=== PATIENT | male | born 1995 | race Caucasian/White ===

== ENCOUNTER 2017-11-28 14:58 | Emergency (ER) | payer OTHER, SELFPAY ==
--- NOTE | 2017-11-28 15:12 | DI.RAD.S_ITS ---
PROCEDURE: XR WRIST RT MIN 3V INDICATIONS: RIGHT wrist injury/deformity TECHNIQUE: 4 views of the wrist were acquired. COMPARISON: None. FINDINGS: Bones: Comminuted intra-articular fracture of the distal radius is noted. Mildly displaced ulnar styloid process fracture is noted. There is widening of the scapholunate interval. Scaphoid view: Scaphoid is intact. Soft tissues: No suspicious soft tissue calcifications. IMPRESSION: 1. Comminuted, intra-articular distal radius fracture. 2. Mildly displaced ulnar styloid process fracture. 3. Widening of the scapholunate interval. Scapholunate ligament injury cannot be excluded. Dictated by: Heidy Simeon MD, PhD on 11/28/2017 at 15:28 Approved by: Heidy Simeon MD, PhD on 11/28/2017 at 15:30
[2017-11-28 15:13] VITALS: BP 135/73; PULSE 64; RESP 14; TEMP 36.8; O2SAT 98; BMI 24.3
--- NOTE | 2017-11-28 16:05 | PC.NURSE ---
left hand scrubbed with hibiclens and water x 2. bacitracin and bulky dressing applied.
[2017-11-28 17:12] VITALS: BP 113/44; PULSE 75; RESP 16; O2SAT 100
--- NOTE | 2017-11-28 17:19 | ED_ITS ---
HPI - Extremity Injury (Upper) <MELANIA Keller - Last Filed: 11/28/17 20:03> General Chief Complaint: Extremity Injury, Upper Stated Complaint: BROKEN RT WRIST Time Seen by Provider: 11/28/17 15:21 Source: patient Mode of arrival: ambulatory Limitations: no limitations History of Present Illness HPI narrative: Patient presents with chief complaint of right wrist pain. He states he fell off of a approximately 10 ft tall roof at work earlier today and hurt his wrist. He denies hitting his head his neck or his back. He denies head neck or back pain. He does have some abrasions as upon. He denies any numbness or tingling of his right wrist or hand but is concerned that he broke his wrist. He denies any right elbow or shoulder pain. He states his tetanus is up-to-date within the past 2 years. He denies any dizziness, lightheadedness , headache, numbness, tingling difficulty walking, bowel incontinence, bladder incontinence, saddle anesthesia. He states he is here for an isolated wrist injury. Related Data Previous Rx's Medication Instructions Recorded oxycodone-acetaminophen [Percocet] 1 tab PO Q4-6H PRN #20 tab 11/28/17 Allergies Allergy/AdvReac Type Severity Reaction Status Date / Time No Known Drug Allergies Allergy Verified 11/28/17 15:13 Review of Systems <MELANIA Keller - Last Filed: 11/28/17 20:03> Review of Systems GENERAL: Denies chills, fatigue, malaise, fever, sweats. HEENT: Denies sinus pain, ear pain, sore throat, difficulty swallowing, dizziness. RESPIRATORY: Denies dyspnea, cough, wheezing, hemoptysis, sputum. CARDIOVASCULAR: Denies chest pain, palpitations, orthopnea, edema, GASTROINTESTINAL: Denies nausea, vomiting, abdominal pain, diarrhea, constipation, melena. : Denies dysuria, frequency, incontinence, hematuria, urinary retention. MUSCULOSKELETAL: See HPI SKIN: See HPI NEUROLOGIC: Denies weakness, headache, numbness, change in speech, confusion, seizures, incoordination. PSYCHIATRIC: No concerning psychosocial issues. 12 point review of systems is negative except for those stated above Exam <MELANIA Keller - Last Filed: 11/28/17 20:03> Narrative Exam Narrative: GENERAL: Young male pacing room. Family at bedside. HEAD: Atraumatic. Normocephalic. No temporal or scalp tenderness. EYES: Pupils equal round and reactive. Extraocular motions intact. No scleral icterus. No injection or drainage. ENT: Nose without bleeding, purulent drainage or septal hematoma. Throat without erythema, tonsillar hypertrophy or exudate. Uvula midline. Airway patent. NECK: Trachea midline. No JVD or lymphadenopathy. Supple, nontender, no meningeal signs. CARDIOVASCULAR: Regular rate and rhythm without murmurs, gallops, or rubs. RESPIRATORY: Clear to auscultation. Breath sounds equal bilaterally. No wheezes , rales, or rhonchi. GASTROINTESTINAL: Abdomen soft, non-tender, nondistended. No hepato-splenomegaly , or palpable masses. No guarding. EXTREMITIES: Right wrist pain to palpation that is generalized. Positive radial pulse noted right wrist. Capillary refill intact and less than 2 sec all fingers right hand. Moving all fingers of right hand. BACK: Nontender without deformity or crepitance. No flank tenderness. No pain to C-spine or spinal palpation. Ambulating well. NEURO: AOx3. Stable gait. Clear speech. SKIN: No ecchymosis, erythema rash or wound right wrist. Noted to have 3 cm abrasion left palm. Initial Vital Signs Initial Vital Signs: Vital Signs Temperature 98.3 F 11/28/17 15:13 Pulse Rate 64 11/28/17 15:13 Respiratory Rate 14 11/28/17 15:13 Blood Pressure 135/73 11/28/17 15:13 Pulse Oximetry 98 11/28/17 15:13 <Ko Mcgee DO - Last Filed: 11/28/17 21:31> Initial Vital Signs Initial Vital Signs: Vital Signs Temperature 98.3 F 11/28/17 15:13 Pulse Rate 64 11/28/17 15:13 Respiratory Rate 14 11/28/17 15:13 Blood Pressure 135/73 11/28/17 15:13 Pulse Oximetry 98 11/28/17 15:13 Procedures <JOHANNE Keller - Last Filed: 11/28/17 20:03> Orthopedic Splinting/Casting Injury #1: Side: right Upper Extremity Injury Location: wrist Upper Extremity Immobilizer: sling/shoulder immobilizer and sugar tong splint Additional Comments: Pulse motor sensory is intact before and after splint application. Splint applied by Shirley GILL Course <JOHANNE Keller - Last Filed: 11/28/17 20:03> Orders Ordered: ED Orders 11/28/17 15:12 XR wrist RT min 3V Stat I checked on the patient several times throughout his stay in the emergency department. Reevaluation(s) Reevaluation #1: Spoke with Dr. Perez who viewed the patient's x-rays, suggested a sugar-tong splint and a sling as well as follow up with Orthopedics. Given that the patient is from out of town, he will be following up with Orthopedics at home. Dr. Perez states this is appropriate. Time: 16:45 Vital Signs - 8 hr 11/28/17 15:13 11/28/17 17:12 11/28/17 17:36 Temperature 98.3 F Pulse Rate 64 75 62 Respiratory Rate 14 16 18 Blood Pressure 135/73 145/71 H Blood Pressure [Left Arm] 113/44 L Pulse Oximetry 98 100 99 <Ko Mcgee DO - Last Filed: 11/28/17 21:31> Orders Ordered: ED Orders 11/28/17 15:12 XR wrist RT min 3V Stat Vital Signs - 8 hr 11/28/17 15:13 11/28/17 17:12 11/28/17 17:36 Temperature 98.3 F Pulse Rate 64 75 62 Respiratory Rate 14 16 18 Blood Pressure 135/73 145/71 H Blood Pressure [Left Arm] 113/44 L Pulse Oximetry 98 100 99 MDM - Extremity Injury (Upper) <MELANIA Keller - Last Filed: 11/28/17 20:03> Differential Diagnosis Differential diagnosis: Likely sprain and strain of wrist, fracture of wrist, finger sprain, dislocation of finger, Colles' fracture and fracture of hand MDM Narrative Medical decision making narrative: The patient presented with chief complaint of right wrist pain. X-ray showed an intra-articular distal radius fracture as well as ulnar styloid process fracture. X-ray consultation was obtained and a splint and sling were applied. Patient was given a narcotic prescription. L and I paperwork was filled out. Discussed at length follow up with Orthopedics upon arrival back home. Patient had no questions or concerns upon discharge. Discharge Plan Departure Patient Disposition: Home Clinical Impression: Closed fracture of styloid process of ulna, Distal radius fracture, right Discharge Date/Time: 11/28/17 17:36 Interventions: ED Discharge Assessment Last Done: 11/28/17 17:36 Instructions: How to Use a Sling, DI for Wrist Fracture, How To Perform RICE ( Rest, Ice, Compress, Elevate), How to Take Care of Your Splint Activity Restrictions/Additional Instructions: You broke your wrist today. We have placed in a splint given you a sling. I am giving you a prescription for pain medication. This can make you sleepy and can make you constipated so please drink plenty of water any lots of fiber. Do not take this with alcohol or take and drive. Please follow-up with your orthopedist as soon as you get home to [place]. Monitor for circulation in your hand. Please ice and elevate your hand. Prescriptions: New oxycodone-acetaminophen [Percocet] 5-325 mg tablet 1 tab PO Q4-6H PRN (Reason: pain) Qty: 20 RF: 0 Referrals: [facility] [Outside]
[2017-11-28 17:36] VITALS: BP 145/71; PULSE 62; RESP 18; O2SAT 99
== END 2017-11-28 17:36 | disposition home or self-care (01) ==
PROVIDERS: Emergency Provider Nurse Practitioner Family
DX: S52.611A Displaced fracture of right ulna styloid process, initial encounter for closed fracture (principal); S52.531A Colles' fracture of right radius, initial encounter for closed fracture; W18.2XXA Fall in (into) shower or empty bathtub, initial encounter
CPT/HCPCS: 29125; 29240; 73110; 99282; 99283